=== PATIENT | female | born 2000 | race Caucasian/White ===

== ENCOUNTER 2021-01-12 16:25 | Emergency (ER) | payer MEDICAID | END 2021-01-12 17:36 | disposition left against medical advice (07) | LOC: ER 16:25 | DX: Z34.00 Encounter for supervision of normal first pregnancy, unspecified trimester (principal); Z53.21 Procedure and treatment not carried out due to patient leaving prior to being seen by health care provider ==

== ENCOUNTER 2021-11-23 19:35 | Emergency (ER) | payer MEDICAID ==
[~2021-11-23] VITALS: Ht 160 cm; Wt 69.5 kg
[2021-11-23 19:41] VITALS: BP 135/89
[2021-11-23 20:10] LABS: EOSINOPHILS % (AUTO) 0 % (0-6); HEMOGLOBIN 14.1 g/dl (12.0-16.0)
[2021-11-23 20:12] LABS: BASOPHILS % (AUTO) 0.1 % (0-1); HEMATOCRIT 41.1 % (35.0-45.0); LYMPHOCYTES # (AUTO) 0.5 X10'3 (1.1-4.8); LYMPHOCYTES % (AUTO) 13.5 % (21-51); MEAN CORPUSCULAR HEMOGLOBIN 32.2 PG (27.0-31.0); MEAN CORPUSCULAR HGB CONC 34.2 g/dL (33.0-36.5); MEAN PLATELET VOLUME 8.6 FL (7.4-10.4); MONOCYTES # (AUTO) 0.5 X10'3 (0-0.9); MONOCYTES % (AUTO) 13.2 % (2-12); NEUTROPHILS # (AUTO) 2.8 X10'3 (1.8-7.7); NEUTROPHILS % (AUTO) 73.2 % (42-75); PLATELET COUNT 177 X10'3 (140-440); RED BLOOD COUNT 4.37 X10'6 (4.20-5.60); RED CELL DISTRIBUTION WIDTH 13.2 % (11.5-14.5); WHITE BLOOD COUNT 3.9 X10'3 (4.5-11.0)
[2021-11-23 20:22] LABS: ALANINE AMINOTRANSFERASE 16 U/L (12-78); ALBUMIN 4.5 G/DL (3.4-5.0); ALBUMIN/GLOBULIN RATIO 1.3 (1.1-1.5); ALKALINE PHOSPHATASE 125 IU/L (46-116); ANION GAP 11 (8-16); ASPARTATE AMINO TRANSFERASE 17 U/L (10-37); BILIRUBIN,TOTAL 0.6 MG/DL (0.1-1.0); BLOOD UREA NITROGEN 17 MG/DL (7-18); CALCIUM 9.5 MG/DL (8.5-10.1); CHLORIDE 104 MMOL/L (99-107); CREATININE 0.85 MG/DL (0.40-0.90); GLUCOSE 106 MG/DL (70-104); LIPASE 72 U/L (73-393); POTASSIUM 4.1 MMOL/L (3.5-5.1); SODIUM 140 MMOL/L (135-145); TOTAL CARBON DIOXIDE 25.4 MMOL/L (24-32); TOTAL PROTEIN 8.1 G/DL (6.4-8.2); eGFR 84 ML/MIN
== END 2021-11-23 22:30 | disposition left against medical advice (07) ==
LOC: ER 19:36
DX: R10.9 Unspecified abdominal pain (principal); Z53.21 Procedure and treatment not carried out due to patient leaving prior to being seen by health care provider
CPT/HCPCS: 80053; 83690; 85025

== ENCOUNTER 2022-01-23 16:19 | Emergency (ER) | payer MEDICAID ==
[~2022-01-23] VITALS: Ht 160 cm; Wt 66.8 kg
[2022-01-23 16:27] VITALS: BP 134/68
[2022-01-23 16:50] LABS: URINE HCG NEGATIVE (NEG)
== END 2022-01-23 17:27 | disposition home or self-care (01) ==
LOC: ER 16:20
DX: Z32.02 Encounter for pregnancy test, result negative (principal); R22.0 Localized swelling, mass and lump, head; R51.9 Headache, unspecified; R11.2 Nausea with vomiting, unspecified; M54.50 Low back pain, unspecified; R22.43 Localized swelling, mass and lump, lower limb, bilateral; R22.33 Localized swelling, mass and lump, upper limb, bilateral; F12.90 Cannabis use, unspecified, uncomplicated; N64.4 Mastodynia; Z56.0 Unemployment, unspecified; Z59.00 Homelessness unspecified
CPT/HCPCS: 81025; 99283

== ENCOUNTER 2022-02-10 20:18 | Emergency (ER) | payer MEDICAID ==
[~2022-02-10] VITALS: Ht 170.2 cm; Wt 67.7 kg
[2022-02-10 20:42] VITALS: BP 120/67
[2022-02-10] MEDS ORDERED: CefTRIAXone 500MG IM Kit w/LIDOcaine IM ONE (21:30)
[2022-02-10] MEDS ORDERED: azithromycin 250mg tablet PO ONE (21:30)
[2022-02-10] MEDS ORDERED: DOXYCYCLINE 100MG CAPSULE PO ONE (21:30)
[2022-02-10 21:31] LABS: URINE HCG NEGATIVE (NEG)
[2022-02-10 21:40] LABS: CLARITY,URINE CLEAR (Clear); COLOR,URINE YELLOW (Yellow); GLUCOSE, URINE NEGATIVE (Neg); KETONES,URINE TRACE mg/dl (Neg); LEUKOCYTE ESTERASE ,URINE NEGATIVE (Neg); NITRITES, URINE NEGATIVE (Neg); OCCULT BLOOD,URINE NEGATIVE (Neg); PROTEIN,URINE NEGATIVE (Neg); UROBILINOGEN,URINE 0.2 E.U/dL (0.2-1.0)
[2022-02-10 22:00] LABS: UA COLLECTION TYPE NON-SPECIFIED
[2022-02-10] MEDS ORDERED: METR-159 PO (22:19)
[2022-02-10] MEDS ORDERED: DOXY-1 PO (22:19)
--- NOTE | 2022-02-10 22:41 | NUR ---
[facility] CALLED FOR PT
--- NOTE | 2022-02-10 22:41 | NUR ---
CALLED [facility] FOR PT, ETA 45 MIN
--- NOTE | 2022-02-14 11:40 | NUR ---
Called patient and notifed her regarding positive results.
== END 2022-02-10 22:41 | disposition home or self-care (01) ==
LOC: ER 20:19
DX: A64 Unspecified sexually transmitted disease (principal); Z59.00 Homelessness unspecified; F12.10 Cannabis abuse, uncomplicated
CPT/HCPCS: 36415; 81003; 81025; 87210; 87491; 87591; 96372; 99284; J0696

== ENCOUNTER 2022-03-05 14:30 | Emergency (ER) | payer MEDICAID ==
[~2022-03-05] VITALS: Ht 160 cm; Wt 67.6 kg
[2022-03-05 14:51] VITALS: BP 119/71
[2022-03-05] MEDS ORDERED: DIF150T PO (15:17)
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
== END 2022-03-05 15:54 | disposition home or self-care (01) ==
LOC: ER 14:30
DX: N89.8 Other specified noninflammatory disorders of vagina (principal); F12.10 Cannabis abuse, uncomplicated; Z59.00 Homelessness unspecified; Z87.448 Personal history of other diseases of urinary system; Z79.899 Other long term (current) drug therapy
CPT/HCPCS: 99283

== ENCOUNTER 2022-03-15 14:10 | Emergency (ER) | payer MEDICAID ==
[~2022-03-15] VITALS: Ht 160 cm; Wt 66.8 kg
[~2022-03-15 14:10] MED LIST: DIF150T PO
[2022-03-15 14:20] VITALS: BP 125/75
[2022-03-15 16:55] LABS: URINE HCG NEGATIVE (NEG)
[2022-03-15 16:57] LABS: CLARITY,URINE CLOUDY (Clear); COLOR,URINE YELLOW (Yellow); GLUCOSE, URINE NEGATIVE (Neg); KETONES,URINE NEGATIVE (Neg); LEUKOCYTE ESTERASE ,URINE NEGATIVE (Neg); NITRITES, URINE NEGATIVE (Neg); OCCULT BLOOD,URINE NEGATIVE (Neg); PH,URINE 5.5 (4.8-8.0); PROTEIN,URINE NEGATIVE (Neg); UROBILINOGEN,URINE 0.2 E.U/dL (0.2-1.0)
[2022-03-15 17:10] LABS: UA COLLECTION TYPE CLN CATCH MIDSTREAM
[2022-03-15 17:11] LABS: SQUAMOUS EPITHELIAL CELL,UR MANY /LPF (FEW)
[2022-03-15 17:12] LABS: BACTERIA,URINE 2+ /HPF (Neg); RBC,URINE 0-2 /HPF (0-2)
--- NOTE | 2022-03-15 17:15 | NUR ---
INFORMED LAB WILL NOT CULTURE URINE TOO MANY EPITHELIAL CELLS. INFORMED
[2022-03-15 17:25] LABS: URINE AMPHETAMINE SCREEN NEGATIVE (Neg); URINE BARBITUATE SCREEN NEGATIVE (Neg); URINE BENZODIAZEPINES SCREEN NEGATIVE (Neg); URINE CANNABINOID SCREEN NEGATIVE (Neg); URINE COCAINE SCREEN NEGATIVE (Neg); URINE METHADONE SCREEN NEGATIVE (Neg); URINE OPIATE SCREEN NEGATIVE (Neg); URINE PHENCYCLIDINE SCREEN NEGATIVE (Neg)
== END 2022-03-15 17:35 | disposition home or self-care (01) ==
LOC: ER 14:11
DX: R51.9 Headache, unspecified (principal); Z87.448 Personal history of other diseases of urinary system; Z59.00 Homelessness unspecified
CPT/HCPCS: 80305; 81001; 81025; 99283

== ENCOUNTER 2022-03-23 11:27 | Emergency (ER) | payer MEDICAID | END 2022-03-23 13:52 | disposition left against medical advice (07) | LOC: ER 11:27 | DX: Z00.8 Encounter for other general examination (principal); Z53.21 Procedure and treatment not carried out due to patient leaving prior to being seen by health care provider ==

== ENCOUNTER 2022-03-23 15:23 | Emergency (ER) | payer MEDICAID ==
[~2022-03-23] VITALS: Ht 160 cm; Wt 66.8 kg
[2022-03-23 15:27] VITALS: BP 149/78
[2022-03-23] MEDS ORDERED: ondansetron 4mg rapidly disintigrating tab PO ONE (15:30)
== END 2022-03-23 16:03 | disposition home or self-care (01) ==
LOC: ER 15:24
DX: R11.0 Nausea (principal); F31.9 Bipolar disorder, unspecified; F20.9 Schizophrenia, unspecified; F12.10 Cannabis abuse, uncomplicated; Z56.0 Unemployment, unspecified; Z79.899 Other long term (current) drug therapy
CPT/HCPCS: 99283

== ENCOUNTER 2022-05-09 17:53 | Emergency (ER) | payer MEDICAID ==
[~2022-05-09] VITALS: Ht 160 cm; Wt 66.2 kg
[2022-05-09 19:11] VITALS: BP 108/62
== END 2022-05-09 21:08 | disposition home or self-care (01) ==
LOC: ER 17:54
DX: R22.33 Localized swelling, mass and lump, upper limb, bilateral (principal); R22.43 Localized swelling, mass and lump, lower limb, bilateral; F31.9 Bipolar disorder, unspecified; Z59.00 Homelessness unspecified
CPT/HCPCS: 99281

== ENCOUNTER 2022-05-27 02:19 | Emergency (ER) | payer MEDICAID ==
[~2022-05-27] VITALS: Ht 160 cm; Wt 73.0 kg
[2022-05-27 02:40] VITALS: BP 110/69
--- NOTE | 2022-05-27 05:57 | NUR ---
PT SLEEPING ON CHAIRS IN WR WITH EVEN RESP AND NO S/SX OF DISTRESS/DISCOMFORT
[2022-05-27 06:31] LABS: URINE HCG NEGATIVE (NEG)
== END 2022-05-27 07:04 | disposition home or self-care (01) ==
LOC: ER 02:19
DX: R10.9 Unspecified abdominal pain (principal); N93.9 Abnormal uterine and vaginal bleeding, unspecified; F20.9 Schizophrenia, unspecified; F31.9 Bipolar disorder, unspecified; F12.10 Cannabis abuse, uncomplicated; Z59.00 Homelessness unspecified
CPT/HCPCS: 81025; 99283

== ENCOUNTER 2022-07-03 15:02 | Emergency (ER) | payer MEDICAID ==
[~2022-07-03] VITALS: Ht 160 cm; Wt 68.0 kg
[2022-07-03 15:05] VITALS: BP 110/69
[2022-07-03 16:06] LABS: BASOPHILS % (AUTO) 0.1 % (0-1); EOSINOPHILS % (AUTO) 0.3 % (0-6); HEMATOCRIT 36.5 % (35.0-45.0); HEMOGLOBIN 12.2 g/dl (12.0-16.0); LYMPHOCYTES # (AUTO) 1.6 X10'3 (1.1-4.8); LYMPHOCYTES % (AUTO) 30.5 % (21-51); MEAN CORPUSCULAR HEMOGLOBIN 30.7 PG (27.0-31.0); MEAN CORPUSCULAR HGB CONC 33.4 g/dL (33.0-36.5); MEAN CORPUSCULAR VOLUME 92.1 FL (78-98); MEAN PLATELET VOLUME 8.1 FL (7.4-10.4); MONOCYTES # (AUTO) 0.4 X10'3 (0-0.9); MONOCYTES % (AUTO) 7.8 % (2-12); NEUTROPHILS # (AUTO) 3.2 X10'3 (1.8-7.7); NEUTROPHILS % (AUTO) 61.3 % (42-75); PLATELET COUNT 249 X10'3 (140-440); RED BLOOD COUNT 3.96 X10'6 (4.20-5.60); RED CELL DISTRIBUTION WIDTH 13.4 % (11.5-14.5); WHITE BLOOD COUNT 5.3 X10'3 (4.5-11.0)
[2022-07-03 16:24] LABS: ALANINE AMINOTRANSFERASE 16 U/L (12-78); ALBUMIN 3.2 G/DL (3.4-5.0); ALBUMIN/GLOBULIN RATIO 0.7 (1.1-1.5); ALKALINE PHOSPHATASE 106 IU/L (46-116); ANION GAP 7 (8-16); ASPARTATE AMINO TRANSFERASE 20 U/L (10-37); BETA HCG,QUANTITATIVE < 1.0 mIU/ml; BILIRUBIN,TOTAL 0.4 MG/DL (0.1-1.0); BLOOD UREA NITROGEN 10 MG/DL (7-18); BUN/CREATININE RATIO 13.9 (6.6-38.0); CHLORIDE 103 MMOL/L (99-107); CREATININE 0.72 MG/DL (0.40-0.90); GLUCOSE 91 MG/DL (70-104); LIPASE 89 U/L (73-393); POTASSIUM 3.6 MMOL/L (3.5-5.1); SODIUM 140 MMOL/L (135-145); TOTAL CARBON DIOXIDE 30.3 MMOL/L (24-32); eGFR > 90 ML/MIN
[2022-07-03 16:42] LABS: CALCIUM 8.4 MG/DL (8.5-10.1)
[2022-07-03 18:03] LABS: CLARITY,URINE CLOUDY (Clear); GLUCOSE, URINE NEGATIVE (Neg); KETONES,URINE NEGATIVE (Neg); LEUKOCYTE ESTERASE ,URINE NEGATIVE (Neg); NITRITES, URINE NEGATIVE (Neg); OCCULT BLOOD,URINE LARGE (Neg); PH,URINE 5.5 (4.8-8.0); PROTEIN,URINE 30 mg/dl (Neg); UROBILINOGEN,URINE 0.2 E.U/dL (0.2-1.0)
[2022-07-03 18:05] LABS: URINE HCG NEGATIVE (NEG)
--- NOTE | 2022-07-03 18:09 | NUR ---
CHAPERONED ALEXIA CHRISTY FOR VISIT
[2022-07-03 18:30] LABS: BACTERIA,URINE 1+ /HPF (Neg); COLOR,URINE Pink (Yellow); RBC,URINE TNTC /HPF (0-2); SQUAMOUS EPITHELIAL CELL,UR MODERATE /LPF (FEW); UA COLLECTION TYPE CLN CATCH MIDSTREAM; WBC,URINE 0-4 /HPF (0-4)
== END 2022-07-03 18:34 | disposition home or self-care (01) ==
LOC: ER 15:02
DX: O46.8X1 Other antepartum hemorrhage, first trimester (principal); F20.9 Schizophrenia, unspecified; F31.9 Bipolar disorder, unspecified; F12.10 Cannabis abuse, uncomplicated; Z59.00 Homelessness unspecified
CPT/HCPCS: 36415; 80053; 81001; 81025; 83690; 84702; 85025; 99283

== ENCOUNTER 2022-07-07 23:23 | Emergency (ER) | payer MEDICAID ==
[~2022-07-07] VITALS: Ht 160 cm; Wt 70.0 kg
[2022-07-08 00:14] LABS: URINE HCG NEGATIVE (NEG)
[2022-07-08 00:15] LABS: CLARITY,URINE SLIGHTLY CLOUDY (Clear); COLOR,URINE YELLOW (Yellow); GLUCOSE, URINE NEGATIVE (Neg); KETONES,URINE NEGATIVE (Neg); LEUKOCYTE ESTERASE ,URINE NEGATIVE (Neg); NITRITES, URINE NEGATIVE (Neg); OCCULT BLOOD,URINE NEGATIVE (Neg); PROTEIN,URINE NEGATIVE (Neg); UROBILINOGEN,URINE 0.2 E.U/dL (0.2-1.0)
[2022-07-08 00:19] LABS: UA COLLECTION TYPE CLN CATCH MIDSTREAM
[2022-07-08 00:21] LABS: BACTERIA,URINE FEW /HPF (Neg); RBC,URINE 0-2 /HPF (0-2); SQUAMOUS EPITHELIAL CELL,UR FEW /LPF (FEW); WBC,URINE 0-4 /HPF (0-4)
--- NOTE | 2022-07-08 01:17 | NUR ---
PATIENT STATED SHE WAS IN TRIAGE TEST CAME BACK NEGATIVE SO I CHANGED CHIEF COMPLAINT TO GENERAL MD/CN AWARE
[2022-07-08 06:43] VITALS: BP 122/74
== END 2022-07-08 06:44 | disposition home or self-care (01) ==
LOC: ER 23:23
DX: Z32.02 Encounter for pregnancy test, result negative (principal); F31.9 Bipolar disorder, unspecified; F20.9 Schizophrenia, unspecified; F12.90 Cannabis use, unspecified, uncomplicated; Z59.00 Homelessness unspecified; Z79.899 Other long term (current) drug therapy
CPT/HCPCS: 81001; 81003; 81025; 99283

== ENCOUNTER 2022-07-31 22:22 | Emergency (ER) | payer MEDICAID ==
[~2022-07-31] VITALS: Ht 160 cm; Wt 70.5 kg
[2022-07-31 22:26] VITALS: BP 116/87
[2022-08-01 00:07] LABS: URINE HCG NEGATIVE (NEG)
[2022-08-01 00:14] LABS: CLARITY,URINE SLIGHTLY CLOUDY (Clear); COLOR,URINE YELLOW (Yellow); GLUCOSE, URINE NEGATIVE (Neg); KETONES,URINE NEGATIVE (Neg); LEUKOCYTE ESTERASE ,URINE NEGATIVE (Neg); NITRITES, URINE NEGATIVE (Neg); OCCULT BLOOD,URINE LARGE (Neg); PH,URINE 5.5 (4.8-8.0); PROTEIN,URINE 30 mg/dl (Neg); UROBILINOGEN,URINE 0.2 E.U/dL (0.2-1.0)
[2022-08-01 00:15] LABS: UA COLLECTION TYPE CLN CATCH MIDSTREAM
[2022-08-01 00:22] LABS: BACTERIA,URINE FEW /HPF (Neg); RBC,URINE 50-100 /HPF (0-2); SQUAMOUS EPITHELIAL CELL,UR MANY /LPF (FEW); WBC,URINE 0-4 /HPF (0-4)
[2022-08-01 00:23] LABS: AMORPHOUS URATES 1+; MUCUS STRANDS MODERATE /LPF (Neg)
== END 2022-08-01 00:49 | disposition home or self-care (01) ==
LOC: ER 22:23
DX: N93.9 Abnormal uterine and vaginal bleeding, unspecified (principal); F20.9 Schizophrenia, unspecified; F31.9 Bipolar disorder, unspecified; Z59.00 Homelessness unspecified; Z56.0 Unemployment, unspecified; Z79.899 Other long term (current) drug therapy
CPT/HCPCS: 81001; 81003; 81025; 87210; 99284

== ENCOUNTER 2022-08-18 10:10 | Emergency (ER) | payer MEDICAID ==
[~2022-08-18] VITALS: Ht 162.6 cm; Wt 64.0 kg
[2022-08-18 15:20] VITALS: BP 137/82
[2022-08-18] MEDS: acetaminophen 325mg tablet PO ONE (15:25)
== END 2022-08-18 15:35 | disposition home or self-care (01) ==
LOC: ER 10:11
DX: R51.9 Headache, unspecified (principal); F12.10 Cannabis abuse, uncomplicated; F31.9 Bipolar disorder, unspecified; F20.9 Schizophrenia, unspecified; Z87.448 Personal history of other diseases of urinary system
CPT/HCPCS: 99283

== ENCOUNTER 2022-09-10 20:29 | Emergency (ER) | payer MEDICAID ==
[~2022-09-10] VITALS: Ht 160 cm; Wt 70.0 kg
[2022-09-10 21:28] LABS: URINE HCG NEGATIVE (NEG)
[2022-09-11 00:34] VITALS: BP 120/76
[2022-09-11 00:38] LABS: CLARITY,URINE SLIGHTLY CLOUDY (Clear); COLOR,URINE YELLOW (Yellow); GLUCOSE, URINE NEGATIVE (Neg); KETONES,URINE TRACE mg/dl (Neg); LEUKOCYTE ESTERASE ,URINE NEGATIVE (Neg); NITRITES, URINE NEGATIVE (Neg); OCCULT BLOOD,URINE NEGATIVE (Neg); PROTEIN,URINE NEGATIVE (Neg); UROBILINOGEN,URINE 0.2 E.U/dL (0.2-1.0)
[2022-09-11 00:47] LABS: UA COLLECTION TYPE CLN CATCH MIDSTREAM
[2022-09-11 00:51] LABS: BACTERIA,URINE FEW /HPF (Neg); RBC,URINE 0-2 /HPF (0-2)
[2022-09-11 00:52] LABS: CAL OXALATE CRYSTALS 2+ /HPF (NEGATIVE); MUCUS STRANDS FEW /LPF (Neg); SQUAMOUS EPITHELIAL CELL,UR MANY /LPF (FEW); WBC CLUMPS,URINE FEW /HPF (NEGATIVE)
[2022-09-11 01:16] LABS: URINE AMPHETAMINE SCREEN NEGATIVE (Neg); URINE BARBITUATE SCREEN NEGATIVE (Neg); URINE BENZODIAZEPINES SCREEN NEGATIVE (Neg); URINE CANNABINOID SCREEN NEGATIVE (Neg); URINE COCAINE SCREEN NEGATIVE (Neg); URINE METHADONE SCREEN NEGATIVE (Neg); URINE OPIATE SCREEN NEGATIVE (Neg); URINE PHENCYCLIDINE SCREEN NEGATIVE (Neg)
[2022-09-12] MEDS ORDERED: LITH300T3 PO (20:22)
[2022-09-12] MEDS ORDERED: ARIP15TA3 PO (20:22)
[2022-09-12] MEDS ORDERED: TOPI-253 PO (20:22)
== END 2022-09-11 00:38 | disposition home or self-care (01) ==
LOC: ER 20:29
DX: Z32.02 Encounter for pregnancy test, result negative (principal); F31.9 Bipolar disorder, unspecified; F12.90 Cannabis use, unspecified, uncomplicated; Z59.00 Homelessness unspecified; Z56.0 Unemployment, unspecified
CPT/HCPCS: 80305; 81001; 81025; 99283

== ENCOUNTER 2022-09-12 03:56 | Emergency (ER) | payer MEDICAID ==
[~2022-09-12] VITALS: Ht 160 cm; Wt 68.2 kg
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
[2022-09-12] MEDS ORDERED: aripiprazole 5mg tablet PO STA (04:58)
[2022-09-12 05:00] LABS: BASOPHILS % (AUTO) 0.2 % (0-1); EOSINOPHILS % (AUTO) 0.2 % (0-6); HEMATOCRIT 44.4 % (35.0-45.0); HEMOGLOBIN 14.6 g/dl (12.0-16.0); LYMPHOCYTES # (AUTO) 1.4 X10'3 (1.1-4.8); MEAN CORPUSCULAR HEMOGLOBIN 30.5 PG (27.0-31.0); MEAN CORPUSCULAR HGB CONC 32.8 g/dL (33.0-36.5); MEAN PLATELET VOLUME 8.2 FL (7.4-10.4); MONOCYTES # (AUTO) 0.6 X10'3 (0-0.9); MONOCYTES % (AUTO) 7.2 % (2-12); NEUTROPHILS # (AUTO) 6.3 X10'3 (1.8-7.7); NEUTROPHILS % (AUTO) 75.4 % (42-75); PLATELET COUNT 206 X10'3 (140-440); RED BLOOD COUNT 4.77 X10'6 (4.20-5.60); RED CELL DISTRIBUTION WIDTH 14.4 % (11.5-14.5); WHITE BLOOD COUNT 8.3 X10'3 (4.5-11.0)
[2022-09-12 05:00] LABS: URINE HCG NEGATIVE (NEG)
[2022-09-12] MEDS ORDERED: LORazepam 1 MG tablet PO STA (05:11)
[2022-09-12] MEDS ORDERED: lithium carbonate 150mg capsule PO ONE (05:15)
[2022-09-12 05:18] LABS: ALANINE AMINOTRANSFERASE 31 U/L (12-78); ALBUMIN 4.1 G/DL (3.4-5.0); ALKALINE PHOSPHATASE 120 IU/L (46-116); ANION GAP 9 (8-16); ASPARTATE AMINO TRANSFERASE 37 U/L (10-37); BILIRUBIN,TOTAL 0.6 MG/DL (0.1-1.0); BLOOD UREA NITROGEN 17 MG/DL (7-18); BUN/CREATININE RATIO 23.3 (10.0-20.0); CALCIUM 9.3 MG/DL (8.5-10.1); CHLORIDE 107 MMOL/L (99-107); CREATININE 0.73 MG/DL (0.40-0.90); GLUCOSE 88 MG/DL (70-104); POTASSIUM 3.7 MMOL/L (3.5-5.1); SODIUM 141 MMOL/L (135-145); TOTAL CARBON DIOXIDE 24.9 MMOL/L (24-32); TOTAL PROTEIN 8.1 G/DL (6.4-8.2); eGFR > 90 ML/MIN
[2022-09-12 05:19] LABS: URINE AMPHETAMINE SCREEN NEGATIVE (Neg); URINE BARBITUATE SCREEN NEGATIVE (Neg); URINE BENZODIAZEPINES SCREEN NEGATIVE (Neg); URINE CANNABINOID SCREEN NEGATIVE (Neg); URINE COCAINE SCREEN NEGATIVE (Neg); URINE METHADONE SCREEN NEGATIVE (Neg); URINE OPIATE SCREEN NEGATIVE (Neg); URINE PHENCYCLIDINE SCREEN NEGATIVE (Neg)
[2022-09-12 05:25] VITALS: BP 126/74
[2022-09-12 05:32] LABS: ETHANOL < 0.010 GM/DL (0.0-0.010)
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
--- NOTE | 2022-09-12 07:25 | NUR ---
PT IN BED AND IS SLEEPING. SITTER OUTSIDE OF DOOR.
--- NOTE | 2022-09-12 07:50 | NUR ---
PT REFUSING VITAL SIGNS AND PT REFUSING MEDICATION
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
--- NOTE | 2022-09-12 08:24 | NUR ---
PT IN ROOM. NO DISTRESS.
[2022-09-12 10:11] LABS: COLOR,URINE YELLOW (Yellow); GLUCOSE, URINE NEGATIVE (Neg); KETONES,URINE 15 mg/dl (Neg); LEUKOCYTE ESTERASE ,URINE TRACE (Neg); NITRITES, URINE NEGATIVE (Neg); OCCULT BLOOD,URINE NEGATIVE (Neg); PROTEIN,URINE NEGATIVE (Neg); UROBILINOGEN,URINE 0.2 E.U/dL (0.2-1.0)
[2022-09-12 10:21] LABS: CLARITY,URINE SLIGHTLY CLOUDY (Clear); UA COLLECTION TYPE CLN CATCH MIDSTREAM
[2022-09-12 10:23] LABS: BACTERIA,URINE 1+ /HPF (Neg); MUCUS STRANDS NONE SEEN /LPF (Neg); RBC,URINE NONE SEEN /HPF (0-2); SQUAMOUS EPITHELIAL CELL,UR MANY /LPF (FEW); WBC,URINE 20-30 /HPF (0-4)
[2022-09-12 10:24] LABS: CAL OXALATE CRYSTALS FEW /HPF (NEGATIVE)
--- NOTE | 2022-09-12 10:47 | NUR ---
Pt eloped from the ED wearing a purple gown at approx 1030. Pt was last seen past [facility]. [facility] notified.
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
[2022-09-12] MEDS ORDERED: TOPI-253 PO (20:22)
[2022-09-12] MEDS ORDERED: ARIP15TA3 PO (20:22)
[2022-09-12] MEDS ORDERED: LITH300T3 PO (20:22)
== END 2022-09-12 10:30 | disposition still patient (30) ==
LOC: ER 03:56
DX: F45.8 Other somatoform disorders (principal); Z20.822 Contact with and (suspected) exposure to COVID-19; F31.9 Bipolar disorder, unspecified; F20.9 Schizophrenia, unspecified; F12.90 Cannabis use, unspecified, uncomplicated; Z56.0 Unemployment, unspecified; Z60.2 Problems related to living alone; Z79.899 Other long term (current) drug therapy
CPT/HCPCS: 36415; 80053; 80305; 80320; 81001; 81025; 84443; 85025; 87635; 99285; C9803

== ENCOUNTER 2022-11-29 02:07 | Emergency (ER) | payer MEDICAID ==
[~2022-11-29] VITALS: Ht 160 cm; Wt 68.2 kg
[~2022-11-29 02:07] MED LIST changes: -DIF150T PO; +DIVA500T9 PO; +LITH300T3 PO; +NICO-907 BC; +OLAN10TA73 PO
[2022-11-29 02:15] VITALS: BP 126/66
[2022-11-29 04:40] LABS: URINE HCG NEGATIVE (NEG)
[2022-11-29 04:43] LABS: BASOPHILS % (AUTO) 0.5 % (0-1); EOSINOPHILS % (AUTO) 0.5 % (0-6); HEMATOCRIT 38.4 % (35.0-45.0); HEMOGLOBIN 12.8 g/dl (12.0-16.0); LYMPHOCYTES # (AUTO) 1.1 X10'3 (1.1-4.8); LYMPHOCYTES % (AUTO) 41.8 % (21-51); MEAN CORPUSCULAR HEMOGLOBIN 30.1 PG (27.0-31.0); MEAN CORPUSCULAR HGB CONC 33.3 g/dL (33.0-36.5); MEAN CORPUSCULAR VOLUME 90.5 FL (78-98); MEAN PLATELET VOLUME 8.4 FL (7.4-10.4); MONOCYTES # (AUTO) 0.3 X10'3 (0-0.9); MONOCYTES % (AUTO) 10.9 % (2-12); NEUTROPHILS # (AUTO) 1.3 X10'3 (1.8-7.7); NEUTROPHILS % (AUTO) 46.3 % (42-75); PLATELET COUNT 170 X10'3 (140-440); RED BLOOD COUNT 4.24 X10'6 (4.20-5.60); RED CELL DISTRIBUTION WIDTH 15.1 % (11.5-14.5); WHITE BLOOD COUNT 2.7 X10'3 (4.5-11.0)
[2022-11-29 04:55] LABS: ALANINE AMINOTRANSFERASE 25 U/L (12-78); ALBUMIN/GLOBULIN RATIO 0.9 (1.1-1.5); ALKALINE PHOSPHATASE 103 IU/L (46-116); ANION GAP 7 (8-16); ASPARTATE AMINO TRANSFERASE 28 U/L (10-37); BILIRUBIN,TOTAL 0.5 MG/DL (0.1-1.0); BLOOD UREA NITROGEN 19 MG/DL (7-18); BUN/CREATININE RATIO 27.1 (10.0-20.0); CALCIUM 9.2 MG/DL (8.5-10.1); CHLORIDE 102 MMOL/L (99-107); ETHANOL < 0.010 GM/DL (0.0-0.010); POTASSIUM 3.7 MMOL/L (3.5-5.1); SODIUM 137 MMOL/L (135-145); TOTAL CARBON DIOXIDE 27.8 MMOL/L (24-32); TOTAL PROTEIN 8.7 G/DL (6.4-8.2); eGFR > 90 ML/MIN
[2022-11-29 05:01] LABS: GLUCOSE 100 MG/DL (70-104)
[2022-11-29 05:04] LABS: ELLIPTOCYTES FEW; PLATELET ESTIMATE NORMAL; POIKILOCYTOSIS FEW; TOTAL CELLS COUNTED 100
[2022-11-29 05:05] LABS: GIANT PLATELET FEW; LARGE PLATELETS FEW
[2022-11-29 05:14] LABS: URINE AMPHETAMINE SCREEN NEGATIVE (Neg); URINE BARBITUATE SCREEN NEGATIVE (Neg); URINE BENZODIAZEPINES SCREEN NEGATIVE (Neg); URINE CANNABINOID SCREEN NEGATIVE (Neg); URINE COCAINE SCREEN NEGATIVE (Neg); URINE METHADONE SCREEN NEGATIVE (Neg); URINE OPIATE SCREEN NEGATIVE (Neg); URINE PHENCYCLIDINE SCREEN NEGATIVE (Neg)
== END 2022-11-29 05:19 | disposition home or self-care (01) ==
LOC: ER 02:07
DX: O99.341 Other mental disorders complicating pregnancy, first trimester (principal); F31.9 Bipolar disorder, unspecified; F20.9 Schizophrenia, unspecified; F12.10 Cannabis abuse, uncomplicated; Z59.00 Homelessness unspecified; Z79.899 Other long term (current) drug therapy
CPT/HCPCS: 36415; 80053; 80305; 80320; 81025; 85007; 85025; 99283

== ENCOUNTER 2022-12-01 18:46 | Emergency (ER) | payer MEDICAID ==
[~2022-12-01] VITALS: Ht 160 cm; Wt 63.4 kg
[2022-12-01 19:21] VITALS: BP 125/59
--- NOTE | 2022-12-01 20:29 | NUR ---
PT PRESENTS TO THE ER STATING " I NEED TO GET A C SECTION, I THINK ITS A SHE AND I CAN FEEL THE BABY KICKING." PT STATES LAST PERIOD WAS DECEMBER OF 2021. PT STATES LAST PREGNANY TEST WAS YESTERDAY.
== END 2022-12-01 20:55 | disposition home or self-care (01) ==
LOC: ER 18:46
DX: Z00.00 Encounter for general adult medical examination without abnormal findings (principal); F20.9 Schizophrenia, unspecified; F31.9 Bipolar disorder, unspecified; F12.90 Cannabis use, unspecified, uncomplicated; Z60.2 Problems related to living alone; Z56.0 Unemployment, unspecified; Z79.899 Other long term (current) drug therapy
CPT/HCPCS: 99281

== ENCOUNTER 2022-12-06 23:00 | Emergency (ER) | payer MEDICAID ==
[~2022-12-06] VITALS: Ht 160 cm; Wt 63.2 kg
[2022-12-07 00:48] VITALS: BP 115/78
== END 2022-12-07 03:03 | disposition left against medical advice (07) ==
LOC: ER 23:01
DX: N89.8 Other specified noninflammatory disorders of vagina (principal); F31.9 Bipolar disorder, unspecified; F20.9 Schizophrenia, unspecified; F12.10 Cannabis abuse, uncomplicated; Z59.00 Homelessness unspecified; Z79.899 Other long term (current) drug therapy
CPT/HCPCS: 99281

== ENCOUNTER 2022-12-17 18:40 | Emergency (ER) | payer MEDICAID ==
[~2022-12-17] VITALS: Ht 160 cm; Wt 60.8 kg
[2022-12-17 18:56] VITALS: BP 119/79
--- NOTE | 2022-12-17 20:44 | NUR ---
PT REFUSED URINE SAMPLE.
== END 2022-12-17 21:09 | disposition home or self-care (01) ==
LOC: ER 18:42
DX: Z00.8 Encounter for other general examination (principal); F20.9 Schizophrenia, unspecified; F41.9 Anxiety disorder, unspecified; F12.90 Cannabis use, unspecified, uncomplicated; Z56.0 Unemployment, unspecified; Z79.899 Other long term (current) drug therapy
CPT/HCPCS: 99281

== ENCOUNTER 2022-12-18 16:54 | Emergency (ER) | payer MEDICAID ==
[~2022-12-18] VITALS: Ht 160 cm; Wt 135.0 kg
[2022-12-18 17:23] VITALS: BP 116/72
== END 2022-12-18 18:48 | disposition left against medical advice (07) ==
LOC: ER 16:55
DX: F22 Delusional disorders (principal); Z53.21 Procedure and treatment not carried out due to patient leaving prior to being seen by health care provider
CPT/HCPCS: 99281